=== PATIENT | female | born 1945 | race Caucasian/White ===

== ENCOUNTER 2017-06-14 09:56 | Emergency (ER) | payer OTHER ==
[2017-06-14 10:08] VITALS: TEMP 97.1; BMI 25.6
--- NOTE | 2017-06-14 10:19 | PDOC ---
History of Present Illness <Henry Dean - Last Filed: 06/14/17 12:43> - General History Source: Patient, Family Exam Limitations: No Limitations - History of Present Illness Initial Comments: 06/14/17 15:28 The patient is a 71 year old female brought via EMS and presenting with her family, with a significant past medical history of HTN and HLD, who presents to the emergency department with dizziness since last night. She states that it started last night but resolved. She notes that this morning she woke up with the dizziness and became nauseous. She reports that she had 2 vomiting episodes , that were nonbloody. She states that laying down alleviates her dizziness. She does report that she has an upset stomach that began this morning but no real pain. She notes that she had a similar experience many years ago. She denies any recent illness. No recent illness/colds, tinnitus. The patient denies chest pain, palpitations, shortness of breath, headache, fever, chills, diarrhea and constipation. Denies dysuria, frequency, urgency and hematuria. No vision changes, speech difficulty, numbness/tingling/weakness , neck pain, back pain. Allergies: None Past surgical history: Non reported Social history: No alcohol, tobacco or drug use reported PMD: Dr. Quach <Donta Brown - Last Filed: 06/14/17 15:30> - General Chief Complaint: Lightheaded Stated Complaint: DIZZINESS Time Seen by Provider: 06/14/17 10:07 Past History - Past Medical History HTN: Yes Hypercholesterolemia: Yes - Psycho/Social/Smoking Cessation Hx Suicidal Ideation: No Smoking History: Never smoked Hx Alcohol Use: No Drug/Substance Use Hx: No <Henry Dean - Last Filed: 06/14/17 12:43> <Donta Brown - Last Filed: 06/14/17 15:30> - Past Medical History Allergies/Adverse Reactions: Allergies Allergy/AdvReac Type Severity Reaction Status Date / Time No Known Allergies Allergy Verified 06/14/17 10:08 Home Medications: Ambulatory Orders Lisinopril 10 mg PO DAILY 06/14/17 Meclizine HCl [Antivert -] 25 mg PO TID PRN #14 tablet 06/14/17 Simvastatin 20 mg PO HS 09/02/17 Review of Systems - Review of Systems Able to Perform ROS?: Yes Comments:: 06/14/17 15:28 CONSTITUTIONAL: No reported: Fever, Chills, Diaphoresis, Generalized Weakness, Malaise, Loss of Appetite HEENT: No reported: Rhinorrhea, Nasal Congestion, Throat Pain, Throat Swelling, Difficulty Swallowing, Mouth Swelling, Ear Pain, Eye Pain, Visual Changes CARDIOVASCULAR: No reported: Chest Pain, Syncope, Palpitations, Irregular Heart Rate, Lightheadedness, Peripheral Edema RESPIRATORY: No reported: Cough, Shortness of Breath, SOB with Exertion, Orthopnea, Wheezing , Stridor, Hemoptysis GASTROINTESTINAL: Reported: Nausea and vomiting No reported: Abdominal pain, Abdominal Distension, Diarrhea, Constipation, Melena, Hematochezia GENITOURINARY: No reported: Dysuria, Frequency, Urgency, Hesitancy, Flank Pain, Genital Pain MUSCULOSKELETAL: No reported: Myalgia, Arthralgia, Joint Swelling, Back pain, Neck Pain SKIN: No reported: Rash, Itching, Pallor HEMEATOLOGIC/IMMUNOLOGIC: No reported: Easy Bleeding, Easy Bruising, Lymphadenopathy, Frequent infections ENDOCRINE: No reported: Unexplained Weight Gain, Unexplained Weight Loss, Heat Intolerance , Cold Intolerance NEUROLOGIC: Reported: Dizziness No reported: Headache, Focal Weakness, Paresthesias, Unsteady Gait, Seizure, Mental Status Changes, Incontinence PSYCHIATRIC: No reported: Anxiety, Depression <Donta Brown - Last Filed: 06/14/17 15:30> *Physical Exam - Vital Signs Last Vital Signs Temp Pulse Resp BP Pulse Ox 97.1 F L 56 L 18 179/79 98 06/14/17 10:05 06/14/17 10:05 06/14/17 10:05 06/14/17 10:05 06/14/17 10:05 <Henry Dean - Last Filed: 06/14/17 12:43> - Vital Signs Last Vital Signs Temp Pulse Resp BP Pulse Ox 97.1 F L 55 L 20 135/75 98 06/14/17 10:05 06/14/17 12:50 06/14/17 12:50 06/14/17 12:50 06/14/17 12:50 - Physical Exam Comments: 06/14/17 15:29 GENERAL: The patient is awake, alert, and fully oriented, Nontoxic - in no acute distress. HEAD: Normocephalic, atraumatic. EYES: extraocular movements intact, sclera anicteric, conjunctiva clear. ENT: Normal voice, Moist mucous membranes. NECK: Normal range of motion, supple LUNGS: Breath sounds equal, clear to auscultation bilaterally. No wheezes, no rhonchi, no rales. HEART: (+) Bradycardia. Without murmur, rub or gallop. ABDOMEN: Soft, nontender, normoactive bowel sounds. No guarding, no rebound.No CVA tenderness EXTREMITIES: Normal range of motion, no edema. No clubbing or cyanosis. No cords, erythema, or tenderness. PSYCH: Normal mood, normal affect. SKIN: Warm, Dry, normal turgor NEURO: Mental status: The patient is oriented x3. Cranial nerves: Cranial nerves II through XII are intact Motor: The upper extremities are 5 over 5 in all muscle groups. The lower extremities are 5 over 5 in all muscle groups. Negative pronator drift Sensation: Sensation is intact to light touch throughout. romberg negative Cerebellar: Rmahos-ewwxrl-[id number] is normal in both upper extremities. Heel-knee- mc is normal in both lower extremities. rapid alternating movements are normal. Gait: Normal. <Donta Brown - Last Filed: 06/14/17 15:30> Heart Score/ECG Review - ECG Impressions Comment:: 06/14/17 10:43 Twelve-lead EKG was performed and reviewed by me. There is normal sinus rhythm with rate of 53. LAFB No acute changes suggestive of acute ischemia No old ekgs for comparison <Henry Dean - Last Filed: 06/14/17 12:43> ED Treatment Course - LABORATORY CBC & Chemistry Diagram: 06/14/17 10:55 06/14/17 10:55 <Henry Dean - Last Filed: 06/14/17 12:43> - LABORATORY CBC & Chemistry Diagram: 06/14/17 10:55 06/14/17 10:55 - ADDITIONAL ORDERS Additional order review: Laboratory Results 06/14/17 06/14/17 06/14/17 10:55 10:55 10:26 INR Sodium 142 Potassium 3.9 Chloride 104 Carbon Dioxide 29 Anion Gap 9 BUN 15 Creatinine 0.7 Creat Clearance w eGFR > 60 Random Glucose 105 Calcium 8.9 Total Bilirubin 0.4 AST 16 ALT 31 Alkaline Phosphatase 95 Creatine Kinase 88 Troponin I < 0.02 Total Protein 7.0 Albumin 3.6 Lipase 110 Urine Color Lt. yellow Urine Appearance Clear Urine pH 8.0 Urine Protein Negative Urine Glucose (UA) Negative Urine Ketones Negative Urine Blood Trace-lyse Urine Nitrite Negative Urine Bilirubin Negative Urine Urobilinogen 0.2 Ur Leukocyte Esterase Negative 06/14/17 10:26 INR 1.04 Sodium Potassium Chloride Carbon Dioxide Anion Gap BUN Creatinine Creat Clearance w eGFR Random Glucose Calcium Total Bilirubin AST ALT Alkaline Phosphatase Creatine Kinase Troponin I Total Protein Albumin Lipase Urine Color Urine Appearance Urine pH Urine Protein Urine Glucose (UA) Urine Ketones Urine Blood Urine Nitrite Urine Bilirubin Urine Urobilinogen Ur Leukocyte Esterase 06/14/17 10:55 RBC 4.91 MCV 86.4 MCHC 33.0 RDW 14.3 MPV 6.9 L Neutrophils % 63.8 Lymphocytes % 28.0 Monocytes % 5.7 Eosinophils % 1.5 Basophils % 1.0 - Medications Given in the ED: ED Medications Discontinued Medications Generic Name Dose Route Start Last Admin Trade Name Eryn PRN Reason Stop Dose Admin Meclizine HCl 25 mg 06/14/17 10:33 06/14/17 11:05 Antivert - PO 06/14/17 10:34 25 mg ONCE ONE Administration Ondansetron HCl 4 mg 06/14/17 10:33 06/14/17 11:10 Zofran Injection IVPB 06/14/17 10:34 4 mg ONCE ONE Administration <Donta Brown - Last Filed: 06/14/17 15:30> Medical Decision Making - Medical Decision Making 06/14/17 10:34 71y F hx of htn, hl, presents with vertigo since last night, intermittent sensation of feeling off balance especially walking around. NO associated double vision, dysarthria, recent illness, diarrhea/melena, headache, neck pain , palpitations. pts exam unremarkble beside bradycardia (Which is long standing) , normal cerebellar exam. suspect peripheral vertigo will give meclizine, zofran will ck labs to r/o anemia, metabolic dernagement ua to r/o occult UTI, ekg to scren for arrythmia A portion of this note was documented by scribe services under my direction. I have reviewed the details of the note, within reason, and agree with the documentation with the following case summary and management plan written by me 06/14/17 12:43 pts albs reviewed unremarkable pt feling significnatly improved was able to ambulate to the rest room by herself without any veritigo/dizziness or nausea pts abd discomfort also resolved - i suspect this was a sensation of nuase the pt could not verbalize. will dc the pt with pmd fu return precautions were discussed I discussed the physical exam findings, ancillary test results and final diagnoses with the patient. I answered all of the patient's questions. The patient was satisfied with the care received and felt comfortable with the discharge plan and treatment plan. The patient will call their primary care physician within 24 hours to arrange follow-up and will return to the Emergency Department with any new, persistent or worsening symptoms. <Henry Dean - Last Filed: 06/14/17 12:43> *DC/Admit/Observation/Transfer - Discharge Dispostion Admit: No <Henry Dean - Last Filed: 06/14/17 12:43> - Attestations Scribe Attestion: 06/14/17 15:30 Documentation prepared by Donta Brown, acting as rn medical surgical for Henry Dean MD <Donta Brown - Last Filed: 06/14/17 15:30> Diagnosis at time of Disposition: Vertigo - Discharge Dispostion Disposition: HOME Condition at time of disposition: Improved - Prescriptions Prescriptions: Meclizine HCl [Antivert -] 25 mg PO TID PRN #14 tablet PRN Reason: Vertigo - Referrals Referrals: Padmini Quach MD [Primary Care Provider] - Dustin Tapia MD [Staff Physician] - - Patient Instructions Printed Discharge Instructions: DI for Vertigo Additional Instructions: Vuelva al departamento de emergencia inmediatamente con CUALQUIER nuevo, persistente o empeorando sntomas incluyendo mareos persistentes, vmitos, dolor de sohan, cambios de visin, dificultad para hablar, entumecimiento, hormigueo, debilidad o cualquier otra preocupacin. [place] los medicamentos vanita se indican para los mareos y nuseas. Debe llamar y hacer un seguimiento con kitchen mdico en 4 o 5 bradshaw para sd evaluaci n ms detallada de nicole sntomas. Los resultados fueron discutidos con usted. Por favor, asegrese de que kitchen mdico revise los resultados de kitchen evaluacin de emergencia. Si usted tuvo alguna radiografa joe kitchen visita, fue ledo preliminarmente por m mismo, un radilogo lo revisar y si hay algn hallazgo adicional lo llamaremos. Return to the emergency department immediately with ANY new, persistent or worsening symptoms including persistent dizziness, vomiting, headache, vision changes, difficulty speaking, numbness, tingling, weakness or any other concerns. Take the medications as prescribed for dizziness and nausea. You MUST call and follow up with your doctor in 4 or 5 days for further evaluation of your symptoms. Results were discussed with you. Please make sure your doctor reviews the results of your emergency evaluation. If you had any xrays during your visit, it was read preliminarily by myself, a Radiologist will review it and if there are any additional findings we will call you. Print Language: GREEK
[2017-06-14] MEDS ORDERED: MECLIZINE HCL 25 MG TABLET (FP) PO ONE (10:33)
[2017-06-14] MEDS ORDERED: ONDANSETRON 4 MG/2 ML VIAL IVPB ONE (10:33)
[2017-06-14] MEDS ORDERED: MECLIZINE HCL 25 MG TABLET (FP) ONE (11:02)
[2017-06-14 11:10] LABS: EOSINOPHIL 1.5 % (0-4.5); MCH 28.5 pg (25.7-33.7); MEAN CELL VOLUME 86.4 fl (80-96); MEAN PLT VOLUME 6.9 fl (7.5-11.1); NEUTROPHILS 63.8 % (42.8-82.8); PLATELET COUNT 251 K/MM3 (134-434); RDW 14.3 % (11.6-15.6); WHITE BLOOD COUNT 5.4 K/mm3 (4.0-10.0)
[2017-06-14 11:24] LABS: URINE APPEARANCE CLEAR; URINE BILIRUBIN NEGATIVE (NEGATIVE); URINE BLOOD TRACE-LYSE (NEGATIVE); URINE COLOR LT. YELLOW; URINE GLUCOSE (UA) NEGATIVE (NEGATIVE); URINE KETONE NEGATIVE (NEGATIVE); URINE LEUK ESTERASE NEGATIVE (NEGATIVE); URINE NITRITE NEGATIVE (NEGATIVE); URINE PROTEIN NEGATIVE (NEGATIVE); URINE UROBILINOGEN 0.2 mg/dL (0.2-1.0)
[2017-06-14 11:27] LABS: INR 1.04 (0.82-1.09); PROTHROMBIN TIME (PATIENT) 11.4 SEC (9.98-11.88)
[2017-06-14 11:36] LABS: ALBUMIN 3.6 g/dl (3.4-5.0); ALK PHOS 95 U/L (45-117); ANION GAP 9 (8-16); BILIRUBIN,TOTAL 0.4 mg/dL (0.2-1.0); CALCIUM 8.9 mg/dL (8.5-10.1); CO2 29 mmol/L (21-32); CPK 88 IU/L (26-192); CREATININE 0.7 mg/dL (0.55-1.02); GLUCOSE,RANDOM 105 mg/dL (74-106); SGOT/AST 16 U/L (15-37); SGPT/ALT 31 U/L (12-78); TROPONIN I < 0.02 ng/ml (0.00-0.05)
--- NOTE | 2017-06-14 12:17 | EKG ---
Test Reason : Blood Pressure : / mmHG Vent. Rate : 053 BPM Atrial Rate : 053 BPM P-R Int : 176 ms QRS Dur : 108 ms QT Int : 482 ms P-R-T Axes : 011 -48 018 degrees QTc Int : 452 ms SINUS BRADYCARDIA LEFT ANTERIOR FASCICULAR BLOCK MINIMAL VOLTAGE CRITERIA FOR LVH, MAY BE NORMAL VARIANT NONSPECIFIC ST AND T WAVE ABNORMALITY U WAVES IN SELECTED LEADS ABNORMAL ECG NO PREVIOUS EKG AVAILABLE REPEAT EKG IF CLINICALLY INDICATED Confirmed by LEONA VILLASENOR MD ([id number]) on 06/14/2017 12:16:50 PM Referred By: Confirmed By:LEONA VILLASENOR MD
[2017-06-14 12:51] VITALS: BP 135/75; PULSE 55
== END 2017-06-14 13:21 | disposition home or self-care (01) ==
LOC: JER 09:56
PROC: 3E033GC Introduction of Other Therapeutic Substance into Peripheral Vein, Percutaneous Approach (ICD-10-PCS; principal; 2017-06-14)
DX: H81.399 Other peripheral vertigo, unspecified ear (principal); I10 Essential (primary) hypertension; E78.00 Pure hypercholesterolemia, unspecified
CPT/HCPCS: 36415; 80053; 81003; 83690; 84484; 85025; 85610; 93005; 93010; 99285-25